=== PATIENT | female | born 1950 | race Hispanic/Latino ===

== ENCOUNTER 2017-08-28 11:10 | Outpatient (CLI) | payer OTHER ==
--- NOTE | 2017-08-29 02:52 | XRay Report ---
FINAL REPORT PROCEDURE: XR ELBOW 2V LT TECHNIQUE: LEFT elbow radiographs, including AP and lateral views. HISTORY: DISPLACED COMMINUTE SUPRACONDYLAR FRACTURE COMPARISON: No prior studies are available for comparison. FINDINGS: There is hardware transfixing the distal humerus and the proximal the radius and ulna. There is no acute fracture or dislocation. There is generalized soft tissue swelling. IMPRESSION: The hardware is intact. There is no acute fracture. There is generalized soft tissue swelling.
== END 2017-08-28 11:11 | disposition home or self-care (01) ==
LOC: XRAY 11:10
PROVIDERS: ATTEND Orthopaedic Surgery
DX: S42.422 Displaced comminuted supracondylar fracture without intercondylar fracture of left humerus (principal); X58.XXXD Exposure to other specified factors, subsequent encounter

== ENCOUNTER 2017-10-17 11:04 | Outpatient (CLI) | payer OTHER ==
--- NOTE | 2017-10-17 15:11 | Cat Scan Report ---
FINAL REPORT EXAM: CT UPPER EXTREM LT WO CON HISTORY: PAIN IN LEFT ELBOW TECHNIQUE: CT of the left elbow performed. Axial images and coronal and sagittal reformatted images were obtained. PRIORS: None. FINDINGS: There hardware in the elbow. This creates streak artifact and limits evaluation. There are several pins in the proximal ulna. There is been internal fixation of the distal humerus and epicondyles as well. There is no acute fracture or dislocation seen. There are bony spurs at the anterior and posterior margins of the supracondylar distal humerus. IMPRESSION: Patient is status post ORIF of distal humerus and proximal ulna. There are some prominence spurs at the anterior and posterior margins of supracondylar distal humerus. No acute abnormality seen.
== END 2017-10-17 11:05 | disposition home or self-care (01) ==
LOC: CT 11:04
PROVIDERS: ATTEND Orthopaedic Surgery
DX: M24.522 Contracture, left elbow (principal); S42.402D Unspecified fracture of lower end of left humerus, subsequent encounter for fracture with routine healing; S52.002D Unspecified fracture of upper end of left ulna, subsequent encounter for closed fracture with routine healing; X58.XXXD Exposure to other specified factors, subsequent encounter

== ENCOUNTER 2021-04-12 08:35 | Outpatient (CLI) | payer MEDICARE ==
--- NOTE | 2021-04-12 09:38 | XRay Report ---
Left elbow 3 views INDICATION: Prior surgery FINDINGS: Comparison is made with 08/28/2017. Extensive postoperative change throughout the elbow. Ali gnment appears normal. Signer Name: Crispin Dill MD Signed: 04/12/2021 9:34 AM Workstation Name: [email or web address]
== END 2021-04-12 08:36 | disposition home or self-care (01) ==
LOC: XRAY 08:35
PROVIDERS: ATTEND Orthopaedic Surgery
DX: M79.602 Pain in left arm (principal)

== ENCOUNTER 2021-04-26 05:54 | Day surgery (SDC) | payer MEDICARE ==
[2021-04-24 13:15] LABS: Hemoglobin 12.8 gm/dl (10.1-14.3); Mean Corpuscular HGB Conc 33 % (30-34); Mean Corpuscular Volume 87 fl (79-97); Platelet Count 134 K/mm3 (140-440); Red Cell Distribution Width 14.4 % (13.2-15.2)
[2021-04-24 13:20] LABS: BUN/Creatinine Ratio 23; Blood Urea Nitrogen 18 mg/dL (7-17); Calcium 10.1 mg/dL (8.4-10.2); Hemolysis Index 0
[2021-04-26] MEDS ORDERED: propofoL 200 MG/20 ML VIAL IV ONE (07:14)
[2021-04-26] MEDS ORDERED: fentaNYL 100 MCG/2 ML INJ ONE (07:14)
[2021-04-26] MEDS ORDERED: LIDOCAINE MPF (2%) 20 MG/1 ML VIAL 5 ML ONE (07:14)
[2021-04-26] MEDS ORDERED: HYDROmorphone 1 MG/1 ML INJ IV PRN ×2 (07:18)
--- NOTE | 2021-04-26 07:19 | Anesthesia Day of Surgery ---
Anesthesia Day of Surgery - Day of Surgery Patient Examined: Yes Patient H&P Reviewed: Yes Patient is NPO: Yes
--- NOTE | 2021-04-26 07:20 | Anesthesia Consultation ---
Anesthesia Consult and Med Hx Date of service: 04/26/21 - Airway Anesthetic Teeth Evaluation: Dentures, Edentulous ROM Head & Neck: Adequate Mental/Hyoid Distance: Adequate Mallampati Class: Class II Intubation Access Assessment: Good - Pre-Operative Health Status ASA Pre-Surgery Classification: ASA2 Proposed Anesthetic Plan: General Nerve Block: IS - Pre-Anesthesia Comment Pre-Anesthesia Comments: PONV-pt requests scop patch. Risks discussed with her - Pulmonary Hx Smoking: No Hx Sleep Apnea: No ([facility] PRE SCREEN LOW RISK) - Cardiovascular System Hx Hypertension: No Hx Heart Attack/AMI: No - Central Nervous System Hx Seizures: No Hx Back Pain: No Hx Psychiatric Problems: No - Gastrointestinal Hx Gastroesophageal Reflux Disease: No - Endocrine Hx End Stage Renal Disease: No Hx Liver Disease: No Hx Non-Insulin Dependent Diabetes: Yes - Hematic Hx Anemia: Yes Hx Sickle Cell Disease: No - Other Systems Hx Alcohol Use: No Hx Substance Use: No Hx Cancer: No Hx Obesity: No
[2021-04-26] MEDS ORDERED: ceFAZolin/Water 2 GM/20 ML 2 GM/20 ML SYRINGE IV ONE (07:27)
[2021-04-26] MEDS ORDERED: BUPIVACAINE/PF (0.5%) 5 MG/1 ML 30 ML VIAL INFILTRATI ONE (07:28)
[2021-04-26] MEDS ORDERED: dexAMETHasone 4 MG/ML VIAL ONE (07:28)
[2021-04-26] MEDS ORDERED: LIDOCAINE (1%) 10 MG/1 ML VIAL 20 ML MDV ONE (07:28)
[2021-04-26] MEDS ORDERED: LACTATED RINGERS 1,000 ML IV SCH (07:30)
[2021-04-26] MEDS ORDERED: SODIUM CHLORIDE P/F VIAL 10 ML 10 ML ONE (07:30)
[2021-04-26] MEDS ORDERED: NEOMY 40 MG/POLYMYXIN B 200,000 UNITS/ML (GU) AMPULE IR ONE (07:49)
[2021-04-26] MEDS ORDERED: PHENYLEPHRINE/NS 1,000 MCG/10 ML SYRINGE (OR USE) IV ONE (08:00)
[2021-04-26] MEDS ORDERED: SCOPOLAMINE TRANSDERMAL PATCH 72 HR TD NR (08:00)
[2021-04-26] MEDS ORDERED: MIDAZOLAM 2 MG/2 ML INJ IV NR (08:00)
[2021-04-26] MEDS ORDERED: ONDANSETRON 4 MG/2 ML INJ IV PRN (08:00)
[2021-04-26] MEDS ORDERED: CLINDAMYCIN 600 MG/50 mL 600 MG/50 ML BAG IV ONE (08:29)
[2021-04-26] MEDS ORDERED: ePHEDrine SULFATE 50 MG/1 ML INJ ONE (08:44)
[2021-04-26] MEDS ORDERED: ONDANSETRON 4 MG/2 ML INJ ONE (08:53)
[2021-04-26] MEDS ORDERED: SODIUM CHLORIDE 0.9% IRR 1,500 ML BOTTLE IR ONE (08:55)
--- NOTE | 2021-04-26 09:47 | Procedure Note ---
Date of procedure: 04/26/21 Pre-op diagnosis: Hardware irritation left elbow Post-op diagnosis: same Procedure: Removal of hardware left elbow Procedure Patient was brought to the OR after being given a scalene nerve block for postop pain management she was placed on the OR table in the supine position following induction with MAC anesthesia the patient's left upper extremity was prepped and draped in the usual sterile manner. A timeout procedure was done to identify the patient and the correct operative site next the arm was exsanguinated followed by inflation of the pneumatic tourniquet to 250 mmHg using the previous incision and using a digital palpation the hardware which consisted of K wires and cerclage wiring was palpated stab wounds were made over these areas the K wires were removed without incident next the cerclage wire was removed in piecemeal fashion beginning at the olecranon area as well as the proximal portion of the forearm C arm fluoroscopy was used to document removal of all medical within the olecranon area this was done following this the wound was then irrigated and was closed in a standard routine fashion postop dressings were applied patient tolerated procedure there were no complications Anesthesia: MAC Surgeon: ANAND HERRMANN (Travis Valdez, 1st assist) Estimated blood loss: minimal Pathology: none Condition: stable Disposition: PACU
[2021-04-26 10:33] VITALS: BP 131/72
[2021-04-26] MEDS ORDERED: ceFAZolin/Water 2 GM/20 ML 2 GM/20 ML SYRINGE IV NR (11:00)
--- NOTE | 2021-04-26 13:52 | XRay Report ---
INTRAOPERATIVE FLUOROSCOPY: LEFT ELBOW INDICATION / CLINICAL INFORMATION: PAINFUL HARDWARE LT ELBOW. TECHNIQUE: Intraoperative spot images were obtained during the procedure. FINDINGS: Images show removal of percutaneous fixation wires from the left elbow See operative/procedure note by performing physician for full details. Fluoroscopy Time: 3 seconds. Fluoroscopy Images: 2. Signer Name: Grabiel Simpson MD Signed: 04/26/2021 1:47 PM Workstation Name: [email or web address]
--- NOTE | 2021-04-26 15:29 | Post Anesthesia Evaluation ---
- Post Anesthesia Evaluation Patient Participated: Yes Airway Patent: Yes Stable Respiratory Function: Yes Nausea/Vomiting: No Temp > 96.8F: Yes Pain Manageable: Yes Adequeate Hydration: Yes Anesthesia Complications: No Block Receding Appropriately: Yes Patient on Ventilator: No
== END 2021-04-26 10:40 | disposition home or self-care (01) ==
LOC: OR 05:54
PROVIDERS: ATTEND Orthopaedic Surgery
DX: T84.89XA Other specified complication of internal orthopedic prosthetic devices, implants and grafts, initial encounter (principal); G89.18 Other acute postprocedural pain; Z20.822 Contact with and (suspected) exposure to COVID-19; E11.9 Type 2 diabetes mellitus without complications; D64.9 Anemia, unspecified; Z88.6 Allergy status to analgesic agent; Z88.0 Allergy status to penicillin; Z88.8 Allergy status to other drugs, medicaments and biological substances; Z91.012 Allergy to eggs; Z91.013 Allergy to seafood; Z79.899 Other long term (current) drug therapy; Z98.890 Other specified postprocedural states; Y83.8 Other surgical procedures as the cause of abnormal reaction of the patient, or of later complication, without mention of misadventure at the time of the procedure
CPT/HCPCS: 20670; 36415; 64415; 73070; 76942; 80048; 82962; 85027; 88300; J0690; J1100; J2250; J2370; J2405; J2704; J3010; J3490; J7120; U0003; 64450; 88302